=== PATIENT | male | born 1950 | race Two or more races ===

== ENCOUNTER 2021-01-06 07:08 | Outpatient (CLI) | payer MEDICARE | END 2021-01-06 23:59 | disposition home or self-care (01) | LOC: RT 07:08 | PROVIDERS: ATTEND Internal Medicine Pulmonary Disease | DX: R94.2 Abnormal results of pulmonary function studies (principal); J44.9 Chronic obstructive pulmonary disease, unspecified | CPT/HCPCS: 94060; 94727; 94729; 94760 ==